=== PATIENT | female | born 1985 | race Caucasian/White ===

== ENCOUNTER 2017-12-05 20:46 | Emergency (ER) | payer BC ==
[~2017-12-05 20:46] MED LIST: Sodium Chloride 0.9% 1,000 ML BAG ONE; Sodium Chloride 0.9% 100 ML BAG ONE
[2017-12-05] MEDS ORDERED: Ondansetron HCl/PF 4 MG/2 ML Vial ONE (21:21)
[2017-12-05] MEDS ORDERED: Pantoprazole 40 MG VIAL ONE (21:21)
[2017-12-05] MEDS ORDERED: Morphine 4 MG/ML VIAL ONE (21:21)
[2017-12-05 21:30] LABS: #Basophils 0.1 thou/uL (0.0-0.2); #Eosinphils 0.1 thou/uL (0.0-0.7); #Lymphocytes 2.3 thou/uL (1.20-3.40); #Monocytes 0.5 thou/uL (0.11-0.59); #Neutrophils 6.7 thou/uL (1.40-6.50); %Basophils 0.6 % (0.0-1.0); %Eosinophils 0.8 % (0.0-10.0); %Lymphocytes 23.6 % (21.0-51.0); Hemoglobin 13.6 g/dL (12.0-16.0); Mean Corpuscular HGB CONC 34.2 g/dL (32.0-36.0); Mean Corpuscular Hemoglobin 30.9 pg (27.0-31.0); Mean Corpuscular Volume 90.3 fL (78.0-98.0); Mean Platelet Volume 6.5 fL (7.4-10.4); Platelet Count 356 thou/uL (130-400); RBC Distribution Width 11.3 % (11.5-14.5); White Blood Cell (WBC) Count 9.6 thou/uL (4.8-10.8)
[2017-12-05 21:55] LABS: ALT (SGPT) 109 U/L (8-55); AST (SGOT) 167 U/L (5-34); Albumin 4.6 g/dL (3.5-5.0); Alkaline Phosphatase 66 U/L (40-150); Anion Gap 12 mmol/L (10-20); BUN (Urea Nitrogen) 8 mg/dL (7.0-18.7); Bilirubin, Total 2.2 mg/dL (0.2-1.2); Calc. Creatinine Clearance 0 mL/min (70-130); Calcium 9.9 mg/dL (7.8-10.44); Carbon Dioxide 27 mmol/L (22-29); Chloride 104 mmol/L (98-107); Estimated GFR-MDRD Greater than 90; Globulin 3.5 g/dL (2.4-3.5); Glucose 100 mg/dL (70-105); Lipase 17 U/L (8-78); Potassium 3.4 mmol/L (3.5-5.1); Protein, Total 8.1 g/dL (6.0-8.3); Sodium 140 mmol/L (136-145)
[2017-12-05 22:29] LABS: Bilirubin Negative (Negative); Blood, Urine Negative (Negative); Clarity Clear (Clear); Glucose, Urine (Dipstick) Negative (Negative); Leukocyte Negative (Negative); Nitrite Negative (Negative); Protein, Urine (Dipstick) Negative (Neg-Trace); Specific Gravity, Urine 1.015 (1.005-1.030); Urobilinogen 0.2 mg/dL (0.2-1.0)
[2017-12-05 22:33] LABS: Pregnancy Test - Urine (BHCG) Negative (Negative); Specific Gravity 1.015 (1.002-1.036)
[2017-12-05 22:34] LABS: Pregu Control Background? CLEAR/WHITE (CLR/WHITE); Pregu Control Bar Appear? YES (CONTROL BAR)
== END 2017-12-05 22:25 | disposition short-term general hospital (02) ==
LOC: MADERS 20:46
DX: R10.811 Right upper quadrant abdominal tenderness (principal); F17.210 Nicotine dependence, cigarettes, uncomplicated; F41.9 Anxiety disorder, unspecified; F32.9 Major depressive disorder, single episode, unspecified
CPT/HCPCS: 80053; 81003; 81025; 83690; 85025; 96361; 96374; 96375; C9113; J2270; J2405; J7050

== ENCOUNTER 2022-04-03 14:41 | Emergency (ER) | payer BC ==
[2022-04-03] MEDS ORDERED: Lactated Ringer's 1,000 ML ONE (15:56)
[2022-04-03] MEDS ORDERED: Meclizine HCl 25 MG TAB ONE (15:56)
[2022-04-03] MEDS ORDERED: predniSONE 20 MG TAB ONE (15:56)
[2022-04-03] MEDS ORDERED: Ondansetron PF 4 MG/2 ML Vial ONE (15:56)
[2022-04-03 16:05] LABS: Mean Corpuscular Hemoglobin 31.7 pg (27.0-31.0); Mean Corpuscular Volume 90.4 fl (78.0-98.0); White Blood Cell (WBC) Count 7.8 10x3/uL (4.8-10.8)
[2022-04-03 16:06] LABS: #Eosinphils 0.1 thou/uL (0.0-0.7); #Lymphocytes 2.2 thou/uL (1.20-3.40); #Monocytes 0.6 thou/uL (0.11-0.59); #Neutrophils 4.8 thou/uL (1.40-6.50); %Basophils 0.9 % (0.0-1.0); %Eosinophils 1.7 % (0.0-10.0); %Lymphocytes 27.9 % (21.0-51.0); %Monocytes 7.5 % (0.0-10.0); Mean Corpuscular HGB CONC 35.1 g/dL (32.0-36.0); Mean Platelet Volume 6.1 fL (7.4-10.4); Platelet Count 348 10x3/uL (130-400); RBC Distribution Width 10.4 % (11.5-14.5)
[2022-04-03 16:07] LABS: #Basophils 0.1 thou/uL (0.0-0.2)
[2022-04-03 16:12] LABS: Pregnancy Test - Urine (BHCG) Negative (Negative)
[2022-04-03 16:14] LABS: ALT (SGPT) 14 U/L (8-55); AST (SGOT) 14 U/L (5-34); Albumin 4.3 g/dL (3.5-5.0); Alkaline Phosphatase 53 U/L (40-110); Anion Gap 12 mmol/L (10-20); BUN (Urea Nitrogen) 11 mg/dL (7.0-18.7); Bilirubin, Total 0.3 mg/dL (0.2-1.2); Calc. Creatinine Clearance 0 mL/min (70-130); Calcium 9.4 mg/dL (7.8-10.44); Carbon Dioxide 27 mmol/L (22-29); Chloride 104 mmol/L (98-107); Estimated GFR 116; Glucose 89 mg/dL (70-105); Potassium 3.8 mmol/L (3.5-5.1); Protein, Total 7.3 g/dL (6.0-8.3); Sodium 139 mmol/L (136-145)
[2022-04-03 16:15] LABS: Pregu Control Background? CLEAR/WHITE (CLR/WHITE); Pregu Control Bar Appear? YES (CONTROL BAR); Specific Gravity 1.008 (1.002-1.036)
[2022-04-03] MEDS ORDERED: Aspirin Chewable 81 MG TAB ONE (17:01)
== END 2022-04-03 17:15 | disposition home or self-care (01) ==
LOC: MADERS 14:41
DX: R42 Dizziness and giddiness (principal); R29.700 NIHSS score 0; F17.210 Nicotine dependence, cigarettes, uncomplicated
CPT/HCPCS: 36416; 70450; 71045; 80053; 81025; 85025; 93005; 94760; 96361; 96374; J2405; J7120; J7512

== ENCOUNTER 2022-11-07 16:19 | Emergency (ER) | payer BC ==
[~2022-11-07 16:19] MED LIST changes: +Iopamidol 370 76% 100 ML VIAL ONE; -Sodium Chloride 0.9% 1,000 ML BAG ONE; -Sodium Chloride 0.9% 100 ML BAG ONE
[2022-11-07] MEDS ORDERED: fentaNYL 50 mcg/mL 1 mL Vial ONE (16:57)
[2022-11-07] MEDS ORDERED: Sodium Chloride 0.9% 1,000 ML ONE ×4 (16:57→20:40)
[2022-11-07] MEDS ORDERED: Sodium Chloride 0.9% 0 ML ONE (16:57)
[2022-11-07] MEDS ORDERED: Promethazine HCl 25 MG/ML VIAL ONE (16:57)
[2022-11-07 17:04] LABS: #Basophils 0.1 thou/uL (0.0-0.2); #Lymphocytes 1.6 thou/uL (1.20-3.40); #Monocytes 0.9 thou/uL (0.11-0.59); #Neutrophils 11.4 thou/uL (1.40-6.50); %Basophils 0.5 % (0.0-1.0); %Eosinophils 0.1 % (0.0-10.0); %Lymphocytes 11.1 % (21.0-51.0); %Monocytes 6.4 % (0.0-10.0); %Neutrophils 81.8 % (42.0-75.0); Hematocrit 37.9 % (36.0-47.0); Hemoglobin 13.3 g/dL (12.0-16.0); Mean Corpuscular HGB CONC 35.1 g/dL (32.0-36.0); Mean Corpuscular Hemoglobin 31.5 pg (27.0-31.0); Mean Platelet Volume 7.6 fL (7.4-10.4); Platelet Count 361 10x3/uL (130-400); RBC Distribution Width 11.9 % (11.5-14.5); Red Blood Cell (RBC) Count 4.21 mill/uL (4.20-5.40); White Blood Cell (WBC) Count 13.9 10x3/uL (4.8-10.8)
[2022-11-07 17:10] LABS: BHCG - Serum Negative (NEGATIVE); Pregs Control Background? CLEAR/WHITE (CLR/WHITE); Pregs Control Bar Appear? YES (CONTROL BAR)
[2022-11-07 17:18] LABS: ALT (SGPT) 59 U/L (8-55); AST (SGOT) 36 U/L (5-34); Albumin 4.4 g/dL (3.5-5.0); Alkaline Phosphatase 59 U/L (40-110); Anion Gap 17 mmol/L (10-20); BUN (Urea Nitrogen) 7 mg/dL (7.0-18.7); Bilirubin, Total 0.9 mg/dL (0.2-1.2); Calc. Creatinine Clearance 0 mL/min (70-130); Calcium 9.7 mg/dL (7.8-10.44); Carbon Dioxide 21 mmol/L (22-29); Chloride 102 mmol/L (98-107); Estimated GFR 116; Globulin 3.5 g/dL (2.4-3.5); Glucose 97 mg/dL (70-105); Lipase 10 U/L (8-78); Potassium 3.2 mmol/L (3.5-5.1); Protein, Total 7.9 g/dL (6.0-8.3); Sodium 137 mmol/L (136-145)
[2022-11-07 18:05] LABS: Bilirubin Large (Negative); Blood, Urine Large (Negative); Glucose, Urine (Dipstick) 100 mg/dL (Negative); Ketone, Urine > or equal to 80 mg/dL (Negative); Leukocyte Large (Negative); Nitrite Negative (Negative); Protein, Urine (Dipstick) > or equal to 300 mg/dL (Neg-Trace); pH, Urine 8.5 (5.0-9.0)
[2022-11-07 18:08] LABS: Specific Gravity, Urine Less/Equal 1.005 (1.005-1.030)
[2022-11-07 18:13] LABS: Clarity Bloody (Clear)
[2022-11-07 18:14] LABS: Bacteria/HPF Rare-Few HPF (None Seen); CAUTI Indications for Culture Pelvic or flank pain; Mucous/LPF 2+ LPF (<2+); RBC/HPF Greater than 50 HPF (0-3); WBC/HPF Greater Than 50 HPF (0-3)
[2022-11-07 18:15] LABS: Urine Culture Reflex Yes Yes
[2022-11-07] MEDS ORDERED: Morphine 4 MG/ML VIAL ONE ×2 (18:29→20:40)
[2022-11-07] MEDS ORDERED: Piperacillin/Tazobactam 4.5 GM VIAL ONE (18:29)
[2022-11-07] MEDS ORDERED: Sodium Chloride 0.9% 100 ML ONE (18:29)
[2022-11-07] MEDS ORDERED: Ondansetron PF 4 MG/2 ML Vial ONE (20:45)
== END 2022-11-07 20:59 | disposition short-term general hospital (02) ==
LOC: MADERS 16:19
DX: K35.80 Unspecified acute appendicitis (principal); Z87.891 Personal history of nicotine dependence
CPT/HCPCS: 74177; 80053; 81001; 83690; 84703; 85025; 87086; 94760; 96365; 96367; 96375; 96376; J2270; J2405; J2543; J2550; J3010; J3490; J7050; Q9967